=== PATIENT | male | born 1990 | race Caucasian/White ===

== ENCOUNTER 2019-01-10 12:42 | Emergency (ER) | payer MEDICAID ==
[~2019-01-10] VITALS: Ht 177.8 cm; Wt 81.8 kg
[2019-01-10 14:05] LABS: BASOPHILS % (AUTO) 1.5 % (0.0-2.0); EOSINOPHILS % (AUTO) 0.7 % (1.0-6.0); HEMATOCRIT 45.3 % (41-53); HEMOGLOBIN 15.2 g/dL (13.5-17.5); LYMPHOCYTES # (AUTO) 1.5 K/uL (1.0-4.8); LYMPHOCYTES % (AUTO) 26.8 % (22.0-44.0); MEAN CORPUSCULAR HEMOGLOBIN 30.9 pg (26.0-34.0); MEAN CORPUSCULAR HGB CONC 33.5 G/dL (31.0-37.0); MEAN CORPUSCULAR VOLUME 93 fL (80-100); MONOCYTES # (AUTO) 0.3 K/uL (0.1-1.0); MONOCYTES % (AUTO) 5.8 % (2.0-9.0); NEUTROPHILS # (AUTO) 3.7 K/uL (1.8-7.7); NEUTROPHILS % (AUTO) 65.2 % (40.0-70.0); PLATELET COUNT (AUTO) 300 K/uL (150-450); RED CELL DISTRIBUTION WIDTH 13.6 % (11.5-14.5)
[2019-01-10 14:16] LABS: ANION GAP 9 mmol/L (8-16); CALCIUM, TOTAL 9.2 mg/dL (8.8-10.5); CARBON DIOXIDE 29 mmol/L (22-29); CHLORIDE 107 mmol/L (98-107); CREATININE 0.89 mg/dL (0.60-1.30); GLOMERULAR FILTR. RATE CALC > 60 mL/min (>60); GLUCOSE,RANDOM 101 mg/dL (70-110); POTASSIUM 3.6 mmol/L (3.5-5.1); SODIUM SERUM 145 mmol/L (136-145); UREA NITROGEN, BLOOD 8 mg/dL (7-18)
[2019-01-10 14:22] LABS: ALANINE AMINOTRANSFERASE 39 U/L (12-78); ALKALINE PHOSPHATASE 79 U/L (46-116); ASPARTATE AMINOTRANSFERASE 23 U/L (15-37); BILIRUBIN,TOTAL 0.1 mg/dL (0.1-1.0); TOTAL PROTEIN, SERUM 7.3 g/dL (6.4-8.2)
[2019-01-10 20:13] VITALS: BP 213/74
== END 2019-01-10 19:45 | disposition home or self-care (01) ==
LOC: EMS 12:44
DX: F10.129 Alcohol abuse with intoxication, unspecified (principal); R41.82 Altered mental status, unspecified; M79.662 Pain in left lower leg; F31.9 Bipolar disorder, unspecified; F41.9 Anxiety disorder, unspecified; F20.9 Schizophrenia, unspecified; F17.210 Nicotine dependence, cigarettes, uncomplicated; F12.90 Cannabis use, unspecified, uncomplicated; Z79.899 Other long term (current) drug therapy; Z88.8 Allergy status to other drugs, medicaments and biological substances; Y90.8 Blood alcohol level of 240 mg/100 ml or more
CPT/HCPCS: 36415; 80053; 85025; 99283; G0480

== ENCOUNTER 2019-01-24 22:32 | Emergency (ER) | payer MEDICAID ==
[~2019-01-24] VITALS: Ht 172.7 cm; Wt 84.3 kg
[2019-01-24] MEDS ORDERED: BUSP15 PO (23:06)
[2019-01-24] MEDS ORDERED: GABA-533 PO (23:06)
[2019-01-24] MEDS ORDERED: OLAN20TA20 PO (23:06)
[2019-01-24] MEDS ORDERED: SERT100T12 PO (23:06)
[2019-01-24] MEDS ORDERED: TRAZ150 PO (23:06)
[2019-01-24] MEDS ORDERED: LORA-192 PO (23:06)
[2019-01-24 23:09] LABS: GLUCOSE,POINT OF CARE 106 MG/DL (70-110)
[2019-01-24] MEDS ORDERED: NALOXONE HCL 1 MG/ML 2 ML SYG IM ONE (23:15)
[2019-01-24 23:30] LABS: BASOPHILS % (AUTO) 0.9 % (0.0-2.0); EOSINOPHILS % (AUTO) 1.6 % (1.0-6.0); HEMATOCRIT 49.1 % (41-53); HEMOGLOBIN 16.7 g/dL (13.5-17.5); LYMPHOCYTES # (AUTO) 2.9 K/uL (1.0-4.8); LYMPHOCYTES % (AUTO) 23.3 % (22.0-44.0); MEAN CORPUSCULAR HEMOGLOBIN 30.4 pg (26.0-34.0); MEAN CORPUSCULAR VOLUME 90 fL (80-100); MONOCYTES # (AUTO) 1.5 K/uL (0.1-1.0); MONOCYTES % (AUTO) 11.5 % (2.0-9.0); NEUTROPHILS # (AUTO) 7.9 K/uL (1.8-7.7); NEUTROPHILS % (AUTO) 62.7 % (40.0-70.0); PLATELET COUNT (AUTO) 276 K/uL (150-450); RED BLOOD CELL COUNT(AUTO) 5.48 MIL/uL (4.50-5.90); RED CELL DISTRIBUTION WIDTH 13.8 % (11.5-14.5)
[2019-01-24 23:43] LABS: ANION GAP 14 mmol/L (8-16); CALCIUM, TOTAL 10.3 mg/dL (8.8-10.5); CARBON DIOXIDE 25 mmol/L (22-29); CHLORIDE 103 mmol/L (98-107); CREATININE 1.31 mg/dL (0.60-1.30); GLOMERULAR FILTR. RATE CALC > 60 mL/min (>60); GLUCOSE,RANDOM 113 mg/dL (70-110); POTASSIUM 3.5 mmol/L (3.5-5.1); SODIUM SERUM 142 mmol/L (136-145); UREA NITROGEN, BLOOD 22 mg/dL (7-18)
[2019-01-24 23:48] LABS: ALANINE AMINOTRANSFERASE 46 U/L (12-78); ALBUMIN 4.3 g/dL (3.4-5.0); ALKALINE PHOSPHATASE 92 U/L (46-116); ASPARTATE AMINOTRANSFERASE 43 U/L (15-37); BILIRUBIN,TOTAL 0.3 mg/dL (0.1-1.0); TOTAL PROTEIN, SERUM 8.3 g/dL (6.4-8.2)
[2019-01-24 23:51] LABS: SALICYLATE 3.7 mg/dL (2.8-20.0)
[2019-01-24 23:58] LABS: ACETAMINOPHEN < 2 mcg/mL (10-30)
[2019-01-25 03:43] LABS: AMPHET/METH SCREEN,URINE POSITIVE (NEGATIVE); BARBITURATE SCREEN, URINE NEGATIVE (NEGATIVE); BENZODIAZEPINES SCREEN,URINE NEGATIVE (NEGATIVE); CANNABINOID SCREEN,URINE NEGATIVE (NEGATIVE); COCAINE SCREEN,URINE NEGATIVE (NEGATIVE); METHADONE SCREEN, URINE NEGATIVE (NEGATIVE); OPIATE SCREEN,URINE NEGATIVE (NEGATIVE)
[2019-01-25 03:45] LABS: PHENCYCLIDINE SCREEN,URINE NEGATIVE (NEGATIVE)
[2019-01-25 03:50] VITALS: BP 104/59
== END 2019-01-25 05:23 | disposition home or self-care (01) ==
LOC: EMS 22:33
DX: F15.10 Other stimulant abuse, uncomplicated (principal); R41.82 Altered mental status, unspecified; F12.90 Cannabis use, unspecified, uncomplicated; F17.210 Nicotine dependence, cigarettes, uncomplicated; Z88.8 Allergy status to other drugs, medicaments and biological substances; Z79.899 Other long term (current) drug therapy
CPT/HCPCS: 36415; 70450; 80053; 80307; 82962; 85025; 93005; 96372; 99285; G0480 ×2; G0481; J2310; 82948

== ENCOUNTER 2019-08-17 20:25 | Emergency (ER) | payer MEDICAID ==
[~2019-08-17] VITALS: Ht 175.3 cm; Wt 95.5 kg
[~2019-08-17 20:25] MED LIST: BUSP15 PO; GABA-533 PO; LORA-192 PO; OLAN20TA20 PO; SERT100T12 PO; TRAZ150 PO
[2019-08-17 21:53] LABS: BASOPHILS % (AUTO) 1.2 % (0.0-2.0); EOSINOPHILS % (AUTO) 2.2 % (1.0-6.0); HEMATOCRIT 44.3 % (41-53); HEMOGLOBIN 15.1 g/dL (13.5-17.5); LYMPHOCYTES # (AUTO) 3.9 K/uL (1.0-4.8); LYMPHOCYTES % (AUTO) 34.3 % (22.0-44.0); MEAN CORPUSCULAR HEMOGLOBIN 29.7 pg (26.0-34.0); MEAN CORPUSCULAR HGB CONC 34.1 G/dL (31.0-37.0); MEAN CORPUSCULAR VOLUME 87 fL (80-100); MONOCYTES # (AUTO) 0.6 K/uL (0.1-1.0); MONOCYTES % (AUTO) 4.9 % (2.0-9.0); NEUTROPHILS # (AUTO) 6.6 K/uL (1.8-7.7); NEUTROPHILS % (AUTO) 57.4 % (40.0-70.0); RED CELL DISTRIBUTION WIDTH 14.1 % (11.5-14.5)
[2019-08-17 21:57] LABS: ANION GAP 12 mmol/L (8-16); CALCIUM, TOTAL 9.4 mg/dL (8.8-10.5); CARBON DIOXIDE 26 mmol/L (22-29); CHLORIDE 109 mmol/L (98-107); CREATININE 0.68 mg/dL (0.60-1.30); GLOMERULAR FILTR. RATE CALC > 60 mL/min (>60); GLUCOSE,RANDOM 104 mg/dL (70-110); POTASSIUM 3.9 mmol/L (3.5-5.1); SODIUM SERUM 147 mmol/L (136-145); UREA NITROGEN, BLOOD 5 mg/dL (7-18)
[2019-08-17 22:05] LABS: ALANINE AMINOTRANSFERASE 33 U/L (12-78); ALBUMIN 4.1 g/dL (3.4-5.0); ALKALINE PHOSPHATASE 124 U/L (46-116); ASPARTATE AMINOTRANSFERASE 18 U/L (15-37); BILIRUBIN,TOTAL 0.1 mg/dL (0.1-1.0); TOTAL PROTEIN, SERUM 7.5 g/dL (6.4-8.2)
[2019-08-17 22:16] LABS: PLATELET COUNT (AUTO) 318 K/uL (150-450)
[2019-08-18] MEDS ORDERED: CLOTRIMAZOLE 1%/BETAMETH DIP 0.05% 15 GM CREAM TP ONE (04:45)
[2019-08-18] MEDS ORDERED: ACETAMINOPHEN 325 MG TABLET PO ONE (05:15)
[2019-08-18 06:22] VITALS: BP 118/78
== END 2019-08-18 06:27 | disposition home or self-care (01) ==
LOC: EMS 20:26
DX: B35.4 Tinea corporis (principal); F10.129 Alcohol abuse with intoxication, unspecified; F17.210 Nicotine dependence, cigarettes, uncomplicated; F12.90 Cannabis use, unspecified, uncomplicated; Z98.890 Other specified postprocedural states; Z89.512 Acquired absence of left leg below knee; Z79.899 Other long term (current) drug therapy; Z88.8 Allergy status to other drugs, medicaments and biological substances; Y90.8 Blood alcohol level of 240 mg/100 ml or more
CPT/HCPCS: 36415; 80053; 82962; 85025; 99283; G0480

== ENCOUNTER 2019-10-13 21:02 | Inpatient (IN) | payer MEDICAID ==
[~2019-10-13] VITALS: Ht 177.8 cm; Wt 79.0 kg
[2019-10-13 22:01] LABS: BASOPHILS % (AUTO) 0.6 % (0.0-2.0); EOSINOPHILS % (AUTO) 0.6 % (1.0-6.0); HEMATOCRIT 43.2 % (41-53); HEMOGLOBIN 14.2 g/dL (13.5-17.5); LYMPHOCYTES # (AUTO) 1.4 K/uL (1.0-4.8); LYMPHOCYTES % (AUTO) 12.5 % (22.0-44.0); MEAN CORPUSCULAR HEMOGLOBIN 29.4 pg (26.0-34.0); MEAN CORPUSCULAR HGB CONC 32.9 G/dL (31.0-37.0); MEAN CORPUSCULAR VOLUME 90 fL (80-100); MONOCYTES # (AUTO) 0.6 K/uL (0.1-1.0); MONOCYTES % (AUTO) 5.5 % (2.0-9.0); NEUTROPHILS # (AUTO) 9.4 K/uL (1.8-7.7); NEUTROPHILS % (AUTO) 80.8 % (40.0-70.0); PLATELET COUNT (AUTO) 326 K/uL (150-450); RED BLOOD CELL COUNT(AUTO) 4.83 MIL/uL (4.50-5.90)
[2019-10-13 22:09] LABS: ANION GAP 8 mmol/L (8-16); CALCIUM, TOTAL 9.1 mg/dL (8.8-10.5); CARBON DIOXIDE 27 mmol/L (22-29); CHLORIDE 102 mmol/L (98-107); CREATININE 1.03 mg/dL (0.60-1.30); GLOMERULAR FILTR. RATE CALC > 60 mL/min (>60); GLUCOSE,RANDOM 157 mg/dL (70-110); POTASSIUM 3.6 mmol/L (3.5-5.1); SODIUM SERUM 137 mmol/L (136-145); UREA NITROGEN, BLOOD 9 mg/dL (7-18)
[2019-10-13 22:15] LABS: ALANINE AMINOTRANSFERASE 38 U/L (12-78); ALBUMIN 4.3 g/dL (3.4-5.0); ALKALINE PHOSPHATASE 101 U/L (46-116); ASPARTATE AMINOTRANSFERASE 22 U/L (15-37); BILIRUBIN,TOTAL 0.3 mg/dL (0.1-1.0); TOTAL PROTEIN, SERUM 7.9 g/dL (6.4-8.2)
[2019-10-13 22:25] LABS: B-TYPE NATRIURETIC PEPTIDE < 5 pg/mL (0-100)
[2019-10-13 22:36] LABS: ACETAMINOPHEN < 2 mcg/mL (10-30)
[2019-10-13 22:50] LABS: SALICYLATE 3.3 mg/dL (2.8-20.0)
[2019-10-13] MEDS ORDERED: NALOXONE HCL 1 MG/ML 2 ML SYG ONE (23:22)
[2019-10-14] MEDS ORDERED: NALOXONE HCL 1 MG/ML 2 ML SYG IM ONE
[2019-10-14] MEDS ORDERED: SODIUM CHLORIDE 0.9% 1,000 ML IV ONE
[2019-10-14] MEDS: OXYGEN THERAPY IH SCH ×3 (00:54→20:43)
[2019-10-14] MEDS ORDERED: PERMETHRIN 5% 60 GM CREAM TP ONE (01:15)
[2019-10-14] MEDS ORDERED: NALOXONE HCL 1 MG/ML 2 ML SYG IVP ONE (01:45)
[2019-10-14] MEDS: NALOXONE HCL 10 MG in DEXTROSE 5%-WATER 240 ML IV PRN ×3 (03:16→17:17)
[2019-10-14 03:46] LABS: AMPHET/METH SCREEN,URINE POSITIVE (NEGATIVE); BARBITURATE SCREEN, URINE NEGATIVE (NEGATIVE); BENZODIAZEPINES SCREEN,URINE POSITIVE (NEGATIVE); CANNABINOID SCREEN,URINE POSITIVE (NEGATIVE); COCAINE SCREEN,URINE NEGATIVE (NEGATIVE); METHADONE SCREEN, URINE NEGATIVE (NEGATIVE); OPIATE SCREEN,URINE NEGATIVE (NEGATIVE)
[2019-10-14 03:48] LABS: PHENCYCLIDINE SCREEN,URINE NEGATIVE (NEGATIVE)
[2019-10-14 06:06] LABS: ABG A-A DIFF O2 10.6 mmHg (10-20.0); ABG BASE EXCESS -1.8 mmol/L (-2.0-3.0); ABG HCO3 22.5 mmol/L (22.0-26.0); ABG METHEMOGLOBIN 0.2 % (0.0-1.5); ABG OXYGEN CONTENT 18.9 mL/dL (15.0-23.0); ABG OXYGEN SATURATION 95.7 % (95.0-98.0); ABG OXYHEMOGLOBIN 94.6 % (94.0-100.0); ABG PCO2 50 mmHg (35-45); ABG PH 7.305 (7.350-7.450); ABG TOTAL HEMOGLOBIN 14.2 G/dL (12.0-18.0); PO2, ARTERIAL BG 78.8 mmHg (80.0-100.0); SOURCE, BLOOD GAS ARTERIAL; TEMPERATURE, FAHRENHEIT, BG 98.6 FAHREN (96.0-98.6)
[2019-10-14 06:07] LABS: SITE, BLOOD GAS RT RADIAL
[2019-10-14] MEDS ORDERED: ACETAMINOPHEN 325 MG TABLET PO PRN (07:15)
[2019-10-14] MEDS ORDERED: ONDANSETRON HCL 4 MG/2 ML VIAL IVP PRN ×2 (07:15)
[2019-10-14] MEDS ORDERED: MAGNESIUM HYDROXIDE SUSPENSION 30 ML UDCUP PO PRN (07:15)
[2019-10-14] MEDS ORDERED: 0.9% SODIUM CHLORIDE 10 ML SYRINGE IVP PRN ×2 (07:15)
[2019-10-14] MEDS ORDERED: OxyCODONE HCL/ACETAMINOPHEN 5-325 MG TABLET PO PRN (07:15)
[2019-10-14] MEDS: SODIUM CHLORIDE 0.9% 1,000 ML IV SCH ×2 (07:42→17:17)
[2019-10-14 08:30] VITALS: BP 126/70
[2019-10-14] MEDS: DOCUSATE SODIUM 100 MG CAPSULE PO SCH ×2 (09:00→21:00)
[2019-10-14] MEDS: FAMOTIDINE 10 MG/ML 2 ML VIAL IVP SCH (09:57)
[2019-10-14] MEDS ORDERED: INFLUENZA VIRUS VACCINE QVS 2019-20 (3YR+)/PF 60 MCG/0.5 ML SYRINGE IM ONE (11:45)
[2019-10-14 12:00] VITALS: BP 144/67
[2019-10-14 12:22] VITALS: BP 112/83
[2019-10-14 12:52] VITALS: BP 118/53
[2019-10-14] MEDS: CALAMINE/ZINC OXIDE 177 ML LOTION TP SCH ×3 (13:10→21:00)
[2019-10-14 16:00] VITALS: BP 108/63
[2019-10-14 20:00] VITALS: BP 114/62
[2019-10-15] VITALS (7 sets, daily range): BP systolic 103–131; BP diastolic 37–81
[2019-10-15] MEDS: NALOXONE HCL 10 MG in DEXTROSE 5%-WATER 240 ML IV PRN (00:11)
[2019-10-15] MEDS: SODIUM CHLORIDE 0.9% 1,000 ML IV SCH ×3 (03:29→23:33)
[2019-10-15 05:05] LABS: BASOPHILS % (AUTO) 0.4 % (0.0-2.0); EOSINOPHILS % (AUTO) 1.4 % (1.0-6.0); HEMATOCRIT 40.3 % (41-53); HEMOGLOBIN 13.1 g/dL (13.5-17.5); LYMPHOCYTES # (AUTO) 1.5 K/uL (1.0-4.8); LYMPHOCYTES % (AUTO) 17.8 % (22.0-44.0); MEAN CORPUSCULAR HEMOGLOBIN 29.5 pg (26.0-34.0); MEAN CORPUSCULAR HGB CONC 32.6 G/dL (31.0-37.0); MEAN CORPUSCULAR VOLUME 91 fL (80-100); MONOCYTES # (AUTO) 0.6 K/uL (0.1-1.0); MONOCYTES % (AUTO) 7.6 % (2.0-9.0); NEUTROPHILS # (AUTO) 6.1 K/uL (1.8-7.7); NEUTROPHILS % (AUTO) 72.8 % (40.0-70.0); PLATELET COUNT (AUTO) 215 K/uL (150-450); RED BLOOD CELL COUNT(AUTO) 4.46 MIL/uL (4.50-5.90); RED CELL DISTRIBUTION WIDTH 14.8 % (11.5-14.5)
[2019-10-15 05:48] LABS: ANION GAP 3 mmol/L (8-16); CALCIUM, TOTAL 8.6 mg/dL (8.8-10.5); CARBON DIOXIDE 27 mmol/L (22-29); CHLORIDE 104 mmol/L (98-107); CREATININE 0.63 mg/dL (0.60-1.30); GLOMERULAR FILTR. RATE CALC > 60 mL/min (>60); GLUCOSE,RANDOM 96 mg/dL (70-110); POTASSIUM 3.9 mmol/L (3.5-5.1); SODIUM SERUM 134 mmol/L (136-145); UREA NITROGEN, BLOOD 5 mg/dL (7-18)
[2019-10-15] MEDS: FAMOTIDINE 10 MG/ML 2 ML VIAL IVP SCH (09:00)
[2019-10-15] MEDS: CALAMINE/ZINC OXIDE 177 ML LOTION TP SCH ×4 (09:37→23:33)
[2019-10-15] MEDS: DOCUSATE SODIUM 100 MG CAPSULE PO SCH ×2 (09:37→20:13)
[2019-10-15] MEDS: OXYGEN THERAPY IH SCH ×2 (09:50→20:00)
[2019-10-15 11:20] LABS: ABG A-A DIFF O2 16.4 mmHg (10-20.0); ABG CARBOXYHEMOGLOBIN 0.6 % (0.0-3.0); ABG HCO3 26.2 mmol/L (22.0-26.0); ABG METHEMOGLOBIN 0.1 % (0.0-1.5); ABG OXYGEN CONTENT 17.7 mL/dL (15.0-23.0); ABG OXYGEN SATURATION 94.7 % (95.0-98.0); ABG PCO2 53 mmHg (35-45); ABG PH 7.354 (7.350-7.450); ABG TOTAL HEMOGLOBIN 13.4 G/dL (12.0-18.0); PO2, ARTERIAL BG 70.7 mmHg (80.0-100.0); SOURCE, BLOOD GAS ARTERIAL; TEMPERATURE, FAHRENHEIT, BG 97.9 FAHREN (96.0-98.6)
[2019-10-15 11:22] LABS: SITE, BLOOD GAS RT RADIAL
[2019-10-15] MEDS: LORazepam 0.5 MG TABLET PO PRN ×2 (15:13→23:33)
[2019-10-15] MEDS: NICOTINE 21 MG/24 HOUR PATCH TD SCH (18:02)
[2019-10-15] MEDS ORDERED: LORA-999 PO (18:56)
[2019-10-15] MEDS: OxyCODONE HCL/ACETAMINOPHEN 5-325 MG TABLET PO PRN (20:10)
[2019-10-16] MEDS: OxyCODONE HCL/ACETAMINOPHEN 5-325 MG TABLET PO PRN ×3 (02:36→16:07)
[2019-10-16 05:15] VITALS: BP 135/71
[2019-10-16] MEDS: LORazepam 0.5 MG TABLET PO PRN ×2 (06:18→17:23)
[2019-10-16 07:53] VITALS: BP 140/84
[2019-10-16] MEDS: NICOTINE 21 MG/24 HOUR PATCH TD SCH (08:30)
[2019-10-16] MEDS: CALAMINE/ZINC OXIDE 177 ML LOTION TP SCH ×3 (08:30→21:00)
[2019-10-16] MEDS: DOCUSATE SODIUM 100 MG CAPSULE PO SCH ×2 (08:30→21:00)
[2019-10-16] MEDS: FAMOTIDINE 10 MG/ML 2 ML VIAL IVP SCH (08:30)
[2019-10-16] MEDS: OXYGEN THERAPY IH SCH ×2 (08:32→20:00)
[2019-10-16] MEDS: SODIUM CHLORIDE 0.9% 1,000 ML IV SCH ×2 (08:36→18:40)
[2019-10-16] MEDS: SERTRALINE HCL 100 MG TABLET PO SCH (12:11)
[2019-10-16 12:25] VITALS: BP 134/94
[2019-10-16 16:35] VITALS: BP 128/78
[2019-10-16] MEDS ORDERED: OLANZapine 10 MG TABLET PO SCH (21:00)
[2019-10-16 22:00] VITALS: BP 141/94
[2019-10-17] MEDS: LORazepam 0.5 MG TABLET PO PRN ×2 (00:30→07:48)
[2019-10-17 00:38] VITALS: BP 130/92
[2019-10-17] MEDS: OxyCODONE HCL/ACETAMINOPHEN 5-325 MG TABLET PO PRN (04:11)
[2019-10-17 04:30] VITALS: BP 139/74
[2019-10-17] MEDS: SODIUM CHLORIDE 0.9% 1,000 ML IV SCH (05:15)
[2019-10-17] MEDS: OXYGEN THERAPY IH SCH (07:15)
[2019-10-17] MEDS: FAMOTIDINE 10 MG/ML 2 ML VIAL IVP SCH (07:48)
[2019-10-17] MEDS: SERTRALINE HCL 100 MG TABLET PO SCH (07:48)
[2019-10-17] MEDS: DOCUSATE SODIUM 100 MG CAPSULE PO SCH (07:49)
[2019-10-17] MEDS: NICOTINE 21 MG/24 HOUR PATCH TD SCH (07:49)
[2019-10-17] MEDS: CALAMINE/ZINC OXIDE 177 ML LOTION TP SCH (07:49)
[2019-10-17] MEDS ORDERED: OLAN10TA3 PO (09:45)
[2019-10-17] MEDS ORDERED: [UNRECOGNIZED DRUG - CODE] TP (09:45)
== END 2019-10-17 10:20 | disposition home or self-care (01) | DRG 817 ==
LOC: EMS 21:04 → ICU 10-14 00:13 → ICUN 10-14 19:25 → 5S 10-15 14:25
PROVIDERS: ADMIT Internal Medicine; ATTEND Internal Medicine
DX: T40.4X2A Poisoning by other synthetic narcotics, intentional self-harm, initial encounter (principal); G93.40 Encephalopathy, unspecified; E87.2 Acidosis; R45.851 Suicidal ideations; F25.9 Schizoaffective disorder, unspecified; B86 Scabies; F19.10 Other psychoactive substance abuse, uncomplicated; F41.1 Generalized anxiety disorder; Z88.8 Allergy status to other drugs, medicaments and biological substances; Z89.512 Acquired absence of left leg below knee; F17.210 Nicotine dependence, cigarettes, uncomplicated; L30.9 Dermatitis, unspecified; F32.9 Major depressive disorder, single episode, unspecified; Y92.89 Other specified places as the place of occurrence of the external cause; Z59.0 Homelessness; Z28.21 Immunization not carried out because of patient refusal
CPT/HCPCS: 36600; 82805; 87081; 93005; 96372; 99291; G0378; G0480; G0481; J2310; J3490; J7030; J7060

== ENCOUNTER 2019-10-22 23:37 | Inpatient (IN) | payer MEDICAID ==
[~2019-10-22] VITALS: Ht 180.3 cm; Wt 80.3 kg
[~2019-10-22 23:37] MED LIST changes: -BUSP15 PO; -LORA-192 PO; +LORA-999 PO; +OLAN10TA3 PO; -TRAZ150 PO; +[UNRECOGNIZED DRUG - CODE] TP
[2019-10-23 02:08] LABS: BASOPHILS % (AUTO) 1.1 % (0.0-2.0); EOSINOPHILS % (AUTO) 2.7 % (1.0-6.0); HEMATOCRIT 42.7 % (41-53); HEMOGLOBIN 14.6 g/dL (13.5-17.5); LYMPHOCYTES # (AUTO) 2.8 K/uL (1.0-4.8); LYMPHOCYTES % (AUTO) 28.5 % (22.0-44.0); MEAN CORPUSCULAR HEMOGLOBIN 30.5 pg (26.0-34.0); MEAN CORPUSCULAR HGB CONC 34.1 G/dL (31.0-37.0); MEAN CORPUSCULAR VOLUME 89 fL (80-100); MONOCYTES # (AUTO) 0.8 K/uL (0.1-1.0); NEUTROPHILS # (AUTO) 5.8 K/uL (1.8-7.7); NEUTROPHILS % (AUTO) 59.7 % (40.0-70.0); PLATELET COUNT (AUTO) 286 K/uL (150-450); RED BLOOD CELL COUNT(AUTO) 4.78 MIL/uL (4.50-5.90)
[2019-10-23] MEDS ORDERED: OXYC-601 PO (02:09)
[2019-10-23] MEDS ORDERED: BUPR75 PO (02:09)
[2019-10-23] MEDS ORDERED: LORA-1000 PO (02:09)
[2019-10-23] MEDS ORDERED: FLUO-191 PO (02:09)
[2019-10-23 02:13] LABS: ANION GAP 10 mmol/L (8-16); CALCIUM, TOTAL 9.7 mg/dL (8.8-10.5); CARBON DIOXIDE 27 mmol/L (22-29); CHLORIDE 102 mmol/L (98-107); CREATININE 0.85 mg/dL (0.60-1.30); GLOMERULAR FILTR. RATE CALC > 60 mL/min (>60); GLUCOSE,RANDOM 100 mg/dL (70-110); POTASSIUM 3.9 mmol/L (3.5-5.1); SODIUM SERUM 139 mmol/L (136-145); UREA NITROGEN, BLOOD 13 mg/dL (7-18)
[2019-10-23] MEDS ORDERED: KETOROLAC TROMETHAMINE 30 MG/ML VIAL IM ONE (02:15)
[2019-10-23 02:18] LABS: ALANINE AMINOTRANSFERASE 34 U/L (12-78); ALKALINE PHOSPHATASE 86 U/L (46-116); ASPARTATE AMINOTRANSFERASE 14 U/L (15-37); BILIRUBIN,TOTAL 0.2 mg/dL (0.1-1.0); TOTAL PROTEIN, SERUM 7.5 g/dL (6.4-8.2)
[2019-10-23] MEDS ORDERED: LORazepam 2 MG TABLET PO ONE (02:30)
[2019-10-23] MEDS: LORazepam 2 MG TABLET PO PRN ×3 (04:57→15:07)
[2019-10-23 05:04] VITALS: BP 135/86
[2019-10-23] MEDS ORDERED: INFLUENZA VIRUS VACCINE QVS 2019-20 (3YR+)/PF 60 MCG/0.5 ML SYRINGE IM ONE (05:45)
[2019-10-23 09:42] VITALS: BP 146/81
[2019-10-23] MEDS: OLANZapine 5 MG TABLET PO SCH (10:05)
[2019-10-23] MEDS: FLUoxetine HCL 20 MG CAPSULE PO SCH (10:05)
[2019-10-23] MEDS: QUEtiapine FUMARATE 25 MG TABLET PO PRN ×2 (10:06→15:07)
[2019-10-23] MEDS: NICOTINE 21 MG/24 HOUR PATCH TD SCH (10:30)
[2019-10-23] MEDS: BuPROPion HCL 150 MG SR TABLET PO SCH (10:38)
[2019-10-23] MEDS ORDERED: PETROLATUM,WHITE 28 GM JELLY TP PRN (15:30)
[2019-10-23] MEDS ORDERED: NICOTINE 14 MG/24 HOUR PATCH TD PRN (15:30)
[2019-10-23] MEDS ORDERED: GuaiFENesin/D-METHORPHAN [SUGAR-FREE] 200-20MG/10 ML SYRUP UDCUP PO PRN (15:30)
[2019-10-23] MEDS ORDERED: CloNIDine HCL 0.1 MG TABLET PO PRN (15:30)
[2019-10-23] MEDS ORDERED: ACETAMINOPHEN 325 MG TABLET PO PRN (15:30)
[2019-10-23] MEDS ORDERED: ALBUTEROL SULFATE HFA 90 MCG/PUFF 8 GM INHALER IH PRN (15:30)
[2019-10-23] MEDS ORDERED: ONDANSETRON HCL 4 MG TABLET PO PRN (15:30)
[2019-10-23] MEDS ORDERED: LOPERAMIDE HCL 2 MG CAPSULE PO PRN (15:30)
[2019-10-23] MEDS ORDERED: DOCUSATE SODIUM 100 MG CAPSULE PO PRN (15:30)
[2019-10-23] MEDS ORDERED: MAGNESIUM HYDROXIDE SUSPENSION 30 ML UDCUP PO PRN (15:30)
[2019-10-23] MEDS ORDERED: BUPR150SR PO (15:38)
[2019-10-23] MEDS: OLANZapine 10 MG TABLET PO SCH (21:00)
[2019-10-24] MEDS: LORazepam 2 MG TABLET PO PRN ×4 (04:58→17:03)
[2019-10-24] MEDS: QUEtiapine FUMARATE 25 MG TABLET PO PRN ×2 (04:58→16:01)
[2019-10-24 08:30] VITALS: BP 109/56
[2019-10-24] MEDS: FLUoxetine HCL 20 MG CAPSULE PO SCH (08:40)
[2019-10-24] MEDS: OLANZapine 5 MG TABLET PO SCH (08:40)
[2019-10-24] MEDS: BuPROPion HCL 150 MG SR TABLET PO SCH (08:40)
[2019-10-24] MEDS: NICOTINE 21 MG/24 HOUR PATCH TD SCH (08:40)
[2019-10-24] MEDS: MUPIROCIN CALCIUM 2% 22 GM OINTMENT NASAL SCH (15:47)
[2019-10-24] MEDS: ZOLPIDEM TARTRATE 10 MG TABLET PO PRN (20:06)
[2019-10-24] MEDS: OLANZapine 10 MG TABLET PO SCH (20:07)
[2019-10-25] MEDS: QUEtiapine FUMARATE 25 MG TABLET PO PRN ×2 (02:06→11:50)
[2019-10-25] MEDS: LORazepam 2 MG TABLET PO PRN ×4 (05:32→19:00)
[2019-10-25] MEDS: MUPIROCIN CALCIUM 2% 22 GM OINTMENT NASAL SCH ×2 (08:09→16:22)
[2019-10-25] MEDS: OLANZapine 5 MG TABLET PO SCH (08:09)
[2019-10-25] MEDS: NICOTINE 21 MG/24 HOUR PATCH TD SCH (08:09)
[2019-10-25] MEDS: FLUoxetine HCL 20 MG CAPSULE PO SCH (08:09)
[2019-10-25] MEDS: BuPROPion HCL 150 MG SR TABLET PO SCH (08:09)
[2019-10-25 08:48] VITALS: BP 146/82
[2019-10-25 11:50] VITALS: BP 138/82
[2019-10-25] MEDS: TraMADol HCL 50 MG TABLET PO PRN ×2 (12:44→12:51)
[2019-10-25 19:36] VITALS: BP 114/86
[2019-10-25] MEDS: ZOLPIDEM TARTRATE 10 MG TABLET PO PRN (20:28)
[2019-10-25] MEDS: OLANZapine 10 MG TABLET PO SCH (20:38)
[2019-10-26 00:35] VITALS: BP 138/82
[2019-10-26] MEDS: TraMADol HCL 50 MG TABLET PO PRN ×2 (00:41→12:53)
[2019-10-26] MEDS: LORazepam 2 MG TABLET PO PRN ×3 (05:37→17:02)
[2019-10-26] MEDS: BuPROPion HCL 150 MG SR TABLET PO SCH (08:17)
[2019-10-26] MEDS: OLANZapine 5 MG TABLET PO SCH (08:17)
[2019-10-26] MEDS: FLUoxetine HCL 20 MG CAPSULE PO SCH (08:17)
[2019-10-26] MEDS: MUPIROCIN CALCIUM 2% 22 GM OINTMENT NASAL SCH ×2 (08:17→16:57)
[2019-10-26] MEDS: NICOTINE 21 MG/24 HOUR PATCH TD SCH (08:18)
[2019-10-26 09:04] VITALS: BP 120/70
[2019-10-26 12:49] VITALS: BP 123/75
[2019-10-26] MEDS: QUEtiapine FUMARATE 25 MG TABLET PO PRN (17:02)
[2019-10-26 17:11] VITALS: BP 118/58
[2019-10-26] MEDS: ZOLPIDEM TARTRATE 10 MG TABLET PO PRN (21:32)
[2019-10-26] MEDS: OLANZapine 10 MG TABLET PO SCH (21:32)
[2019-10-27] MEDS: LORazepam 2 MG TABLET PO PRN ×3 (05:32→16:38)
[2019-10-27] MEDS: TraMADol HCL 50 MG TABLET PO PRN ×2 (05:55→12:40)
[2019-10-27] MEDS: FLUoxetine HCL 20 MG CAPSULE PO SCH (07:57)
[2019-10-27] MEDS: OLANZapine 5 MG TABLET PO SCH (07:57)
[2019-10-27] MEDS: NICOTINE 21 MG/24 HOUR PATCH TD SCH (07:57)
[2019-10-27] MEDS: BuPROPion HCL 150 MG SR TABLET PO SCH (07:58)
[2019-10-27] MEDS: MUPIROCIN CALCIUM 2% 22 GM OINTMENT NASAL SCH ×2 (07:58→16:21)
[2019-10-27 08:49] VITALS: BP 117/51
[2019-10-27] MEDS: OLANZapine 10 MG TABLET PO SCH (20:09)
[2019-10-28] MEDS: ZOLPIDEM TARTRATE 10 MG TABLET PO PRN ×2 (02:55→20:01)
[2019-10-28 02:56] VITALS: BP 128/50
[2019-10-28] MEDS: LORazepam 2 MG TABLET PO PRN ×3 (06:54→18:05)
[2019-10-28 08:44] VITALS: BP 143/70
[2019-10-28] MEDS: BuPROPion HCL 150 MG SR TABLET PO SCH (08:47)
[2019-10-28] MEDS: FLUoxetine HCL 20 MG CAPSULE PO SCH (08:47)
[2019-10-28] MEDS: NICOTINE 21 MG/24 HOUR PATCH TD SCH (08:48)
[2019-10-28] MEDS: MUPIROCIN CALCIUM 2% 22 GM OINTMENT NASAL SCH ×2 (08:48→16:05)
[2019-10-28] MEDS: TraMADol HCL 50 MG TABLET PO PRN ×2 (08:48→16:04)
[2019-10-28] MEDS: OLANZapine 5 MG TABLET PO SCH (09:06)
[2019-10-28 16:00] VITALS: BP 124/80
[2019-10-28] MEDS: OLANZapine 10 MG TABLET PO SCH (20:01)
[2019-10-29] MEDS: LORazepam 2 MG TABLET PO PRN ×3 (02:59→16:25)
[2019-10-29 06:39] VITALS: BP 115/69
[2019-10-29] MEDS: TraMADol HCL 50 MG TABLET PO PRN ×2 (06:39→16:01)
[2019-10-29 07:39] VITALS: BP 113/71
[2019-10-29] MEDS: OLANZapine 5 MG TABLET PO SCH (08:14)
[2019-10-29] MEDS: FLUoxetine HCL 20 MG CAPSULE PO SCH (08:14)
[2019-10-29] MEDS: BuPROPion HCL 150 MG SR TABLET PO SCH (08:14)
[2019-10-29] MEDS: NICOTINE 21 MG/24 HOUR PATCH TD SCH (08:15)
[2019-10-29 09:19] VITALS: BP 113/71
[2019-10-29 16:01] VITALS: BP 120/70
[2019-10-29] MEDS: OLANZapine 10 MG TABLET PO SCH (20:11)
[2019-10-30 06:21] VITALS: BP 130/63
[2019-10-30] MEDS: LORazepam 2 MG TABLET PO PRN ×3 (06:21→17:46)
[2019-10-30 06:50] VITALS: BP 117/68
[2019-10-30] MEDS: TraMADol HCL 50 MG TABLET PO PRN ×2 (06:52→15:47)
[2019-10-30] MEDS: FLUoxetine HCL 20 MG CAPSULE PO SCH (08:12)
[2019-10-30] MEDS: OLANZapine 5 MG TABLET PO SCH (08:12)
[2019-10-30] MEDS: BuPROPion HCL 150 MG SR TABLET PO SCH (08:12)
[2019-10-30] MEDS: NICOTINE 21 MG/24 HOUR PATCH TD SCH (08:13)
[2019-10-30 15:47] VITALS: BP 108/68
[2019-10-30 16:00] VITALS: BP 108/68
[2019-10-30] MEDS: OLANZapine 10 MG TABLET PO SCH (20:43)
[2019-10-30] MEDS: ZOLPIDEM TARTRATE 10 MG TABLET PO PRN (23:52)
[2019-10-31 00:53] VITALS: BP 100/73
[2019-10-31] MEDS: LORazepam 2 MG TABLET PO PRN ×3 (04:30→16:51)
[2019-10-31] MEDS: TraMADol HCL 50 MG TABLET PO PRN (05:34)
[2019-10-31] MEDS: FLUoxetine HCL 20 MG CAPSULE PO SCH (08:19)
[2019-10-31] MEDS: NICOTINE 21 MG/24 HOUR PATCH TD SCH (08:19)
[2019-10-31] MEDS: OLANZapine 5 MG TABLET PO SCH (08:19)
[2019-10-31] MEDS: BuPROPion HCL 150 MG SR TABLET PO SCH (08:19)
[2019-10-31 09:18] VITALS: BP 105/67
[2019-10-31 18:01] VITALS: BP 116/72
[2019-10-31] MEDS: OLANZapine 10 MG TABLET PO SCH (20:53)
[2019-11-01 06:59] VITALS: BP 145/76
[2019-11-01] MEDS: LORazepam 2 MG TABLET PO PRN ×2 (07:00→12:31)
[2019-11-01 08:01] VITALS: BP 106/66
[2019-11-01] MEDS: FLUoxetine HCL 20 MG CAPSULE PO SCH (08:02)
[2019-11-01] MEDS: TraMADol HCL 50 MG TABLET PO PRN ×2 (08:02→14:16)
[2019-11-01] MEDS: OLANZapine 5 MG TABLET PO SCH (08:02)
[2019-11-01] MEDS: BuPROPion HCL 150 MG SR TABLET PO SCH (08:05)
[2019-11-01] MEDS: NICOTINE 21 MG/24 HOUR PATCH TD SCH (08:06)
[2019-11-01 09:05] VITALS: BP 106/66
[2019-11-01 14:16] VITALS: BP 110/77
[2019-11-01 17:14] VITALS: BP 110/63
[2019-11-01] MEDS: OLANZapine 10 MG TABLET PO SCH (20:18)
[2019-11-02] MEDS: LORazepam 2 MG TABLET PO PRN ×3 (05:32→15:53)
[2019-11-02 06:14] VITALS: BP 116/77
[2019-11-02] MEDS: TraMADol HCL 50 MG TABLET PO PRN (07:21)
[2019-11-02 08:21] VITALS: BP 143/93
[2019-11-02] MEDS: FLUoxetine HCL 20 MG CAPSULE PO SCH (08:24)
[2019-11-02] MEDS: BuPROPion HCL 150 MG SR TABLET PO SCH (08:25)
[2019-11-02] MEDS: NICOTINE 21 MG/24 HOUR PATCH TD SCH (08:25)
[2019-11-02] MEDS: OLANZapine 5 MG TABLET PO SCH (08:25)
[2019-11-02 16:29] VITALS: BP 115/70
[2019-11-02] MEDS: OLANZapine 10 MG TABLET PO SCH (21:18)
[2019-11-03 01:52] VITALS: BP 117/79
[2019-11-03] MEDS: ZOLPIDEM TARTRATE 10 MG TABLET PO PRN (01:52)
[2019-11-03] MEDS: LORazepam 2 MG TABLET PO PRN ×3 (05:46→16:25)
[2019-11-03] MEDS: NICOTINE 21 MG/24 HOUR PATCH TD SCH (08:13)
[2019-11-03] MEDS: FLUoxetine HCL 20 MG CAPSULE PO SCH (08:16)
[2019-11-03] MEDS: BuPROPion HCL 150 MG SR TABLET PO SCH (08:16)
[2019-11-03 08:17] VITALS: BP 119/70
[2019-11-03] MEDS: TraMADol HCL 50 MG TABLET PO PRN (08:17)
[2019-11-03] MEDS: OLANZapine 5 MG TABLET PO SCH (08:17)
[2019-11-03 16:47] VITALS: BP 108/67
[2019-11-03] MEDS: OLANZapine 10 MG TABLET PO SCH (20:18)
[2019-11-04 04:52] VITALS: BP 106/64
[2019-11-04] MEDS: LORazepam 2 MG TABLET PO PRN ×2 (05:02→10:46)
[2019-11-04] MEDS: TraMADol HCL 50 MG TABLET PO PRN (05:03)
[2019-11-04] MEDS: OLANZapine 5 MG TABLET PO SCH (08:10)
[2019-11-04] MEDS: BuPROPion HCL 150 MG SR TABLET PO SCH (08:10)
[2019-11-04] MEDS: FLUoxetine HCL 20 MG CAPSULE PO SCH (08:10)
[2019-11-04] MEDS: NICOTINE 21 MG/24 HOUR PATCH TD SCH (08:11)
[2019-11-04 10:28] VITALS: BP 116/71
[2019-11-04] MEDS: LORazepam 1 MG TABLET PO PRN (15:45)
[2019-11-04] MEDS: MAG HYDROX/AL HYDROX/SIMETH ES 30 ML SUSPENSION UDCUP PO PRN (16:45)
[2019-11-04 17:03] VITALS: BP 116/74
[2019-11-04] MEDS: OLANZapine 10 MG TABLET PO SCH (21:12)
[2019-11-04] MEDS: ZOLPIDEM TARTRATE 10 MG TABLET PO PRN (22:20)
[2019-11-05 04:59] VITALS: BP 112/66
[2019-11-05] MEDS: TraMADol HCL 50 MG TABLET PO PRN ×2 (04:59→16:26)
[2019-11-05] MEDS: LORazepam 1 MG TABLET PO PRN ×2 (04:59→13:39)
[2019-11-05] MEDS: OLANZapine 5 MG TABLET PO SCH (08:49)
[2019-11-05] MEDS: NICOTINE 21 MG/24 HOUR PATCH TD SCH (08:49)
[2019-11-05] MEDS: FLUoxetine HCL 20 MG CAPSULE PO SCH (08:49)
[2019-11-05] MEDS: BuPROPion HCL 150 MG SR TABLET PO SCH (08:50)
[2019-11-05 09:47] VITALS: BP 125/83
[2019-11-05 16:26] VITALS: BP 120/80
[2019-11-05 20:11] VITALS: BP 124/74
[2019-11-05] MEDS: OLANZapine 10 MG TABLET PO SCH (20:43)
[2019-11-06 04:25] VITALS: BP 137/71
[2019-11-06] MEDS: LORazepam 1 MG TABLET PO PRN ×2 (04:32→12:12)
[2019-11-06] MEDS: TraMADol HCL 50 MG TABLET PO PRN (04:32)
[2019-11-06 08:35] VITALS: BP 100/65
[2019-11-06] MEDS: FLUoxetine HCL 20 MG CAPSULE PO SCH (09:13)
[2019-11-06] MEDS: BuPROPion HCL 150 MG SR TABLET PO SCH (09:14)
[2019-11-06] MEDS: OLANZapine 5 MG TABLET PO SCH (09:14)
[2019-11-06] MEDS: NICOTINE 21 MG/24 HOUR PATCH TD SCH (09:14)
[2019-11-06 16:00] VITALS: BP 110/66
[2019-11-06] MEDS: MAG HYDROX/AL HYDROX/SIMETH ES 30 ML SUSPENSION UDCUP PO PRN (16:03)
[2019-11-06] MEDS: OLANZapine 10 MG TABLET PO SCH (20:28)
[2019-11-07 04:22] VITALS: BP 108/69
[2019-11-07] MEDS: TraMADol HCL 50 MG TABLET PO PRN (04:24)
[2019-11-07] MEDS: LORazepam 1 MG TABLET PO PRN ×3 (04:24→16:43)
[2019-11-07] MEDS: BuPROPion HCL 150 MG SR TABLET PO SCH (08:07)
[2019-11-07] MEDS: FLUoxetine HCL 20 MG CAPSULE PO SCH (08:07)
[2019-11-07] MEDS: OLANZapine 5 MG TABLET PO SCH (08:07)
[2019-11-07] MEDS: NICOTINE 21 MG/24 HOUR PATCH TD SCH (08:08)
[2019-11-07 08:42] VITALS: BP 118/80
[2019-11-07 19:16] VITALS: BP 114/68
[2019-11-07] MEDS: OLANZapine 10 MG TABLET PO SCH (19:58)
[2019-11-08] MEDS: ZOLPIDEM TARTRATE 10 MG TABLET PO PRN (01:10)
[2019-11-08 05:05] VITALS: BP 134/81
[2019-11-08] MEDS: LORazepam 1 MG TABLET PO PRN ×3 (05:07→16:42)
[2019-11-08] MEDS: TraMADol HCL 50 MG TABLET PO PRN (05:07)
[2019-11-08] MEDS: OLANZapine 5 MG TABLET PO SCH (08:04)
[2019-11-08] MEDS: FLUoxetine HCL 20 MG CAPSULE PO SCH (08:04)
[2019-11-08] MEDS: NICOTINE 21 MG/24 HOUR PATCH TD SCH (08:04)
[2019-11-08] MEDS: BuPROPion HCL 150 MG SR TABLET PO SCH (08:04)
[2019-11-08 08:41] VITALS: BP 120/68
[2019-11-08] MEDS ORDERED: OLAN10TA3 PO ×2 (16:12→16:13)
[2019-11-08] MEDS ORDERED: FLUO-191 PO (16:15)
[2019-11-08] MEDS ORDERED: BUPR150SR PO (16:16)
[2019-11-08] MEDS ORDERED: OLAN5TAB2 PO (16:19)
== END 2019-11-08 17:30 | disposition home or self-care (01) | DRG 885 ==
LOC: EMS 23:37 → 3EC 10-23 04:00 → 3EI 10-25 14:50
PROVIDERS: ADMIT Psychiatry & Neurology Child & Adolescent Psychiatry; ATTEND Psychiatry & Neurology Child & Adolescent Psychiatry
DX: F20.0 Paranoid schizophrenia (principal); F10.10 Alcohol abuse, uncomplicated; F19.10 Other psychoactive substance abuse, uncomplicated; R45.850 Homicidal ideations; Z59.0 Homelessness; Z89.512 Acquired absence of left leg below knee; Z28.82 Immunization not carried out because of caregiver refusal; Z71.6 Tobacco abuse counseling
CPT/HCPCS: 87081; G0480; J1885

== ENCOUNTER 2019-12-27 05:52 | Emergency (ER) | payer MEDICAID ==
[~2019-12-27] VITALS: Ht 180.3 cm; Wt 81.8 kg
[~2019-12-27 05:52] MED LIST changes: +BUPR150SR PO; +FLUO-191 PO; -GABA-533 PO; -LORA-999 PO; -OLAN20TA20 PO; +OLAN5TAB2 PO; -SERT100T12 PO; -[UNRECOGNIZED DRUG - CODE] TP
[2019-12-27] MEDS ORDERED: SODIUM CHLORIDE 0.9% 1,000 ML IV ONE (07:30)
[2019-12-27] MEDS ORDERED: LORazepam 2 MG/ML VIAL IVP ONE (07:30)
[2019-12-27 08:13] LABS: BASOPHILS % (AUTO) 0.7 % (0.0-2.0); EOSINOPHILS % (AUTO) 1.8 % (1.0-6.0); HEMATOCRIT 38.9 % (41-53); HEMOGLOBIN 13.4 g/dL (13.5-17.5); LYMPHOCYTES # (AUTO) 1.3 K/uL (1.0-4.8); MEAN CORPUSCULAR HGB CONC 34.5 G/dL (31.0-37.0); MEAN CORPUSCULAR VOLUME 90 fL (80-100); MONOCYTES # (AUTO) 0.7 K/uL (0.1-1.0); MONOCYTES % (AUTO) 7.2 % (2.0-9.0); NEUTROPHILS # (AUTO) 7.4 K/uL (1.8-7.7); NEUTROPHILS % (AUTO) 77.3 % (40.0-70.0); PLATELET COUNT (AUTO) 291 K/uL (150-450); RED BLOOD CELL COUNT(AUTO) 4.31 MIL/uL (4.50-5.90); RED CELL DISTRIBUTION WIDTH 13.6 % (11.5-14.5)
[2019-12-27 08:24] LABS: ANION GAP 7 mmol/L (8-16); CALCIUM, TOTAL 8.8 mg/dL (8.8-10.5); CARBON DIOXIDE 29 mmol/L (22-29); CHLORIDE 108 mmol/L (98-107); CREATININE 0.67 mg/dL (0.60-1.30); GLOMERULAR FILTR. RATE CALC > 60 mL/min (>60); GLUCOSE,RANDOM 98 mg/dL (70-110); POTASSIUM 3.9 mmol/L (3.5-5.1); SODIUM SERUM 144 mmol/L (136-145); UREA NITROGEN, BLOOD 8 mg/dL (7-18)
[2019-12-27 08:49] LABS: ALANINE AMINOTRANSFERASE 26 U/L (12-78); ALBUMIN 3.4 g/dL (3.4-5.0); ALKALINE PHOSPHATASE 81 U/L (46-116); ASPARTATE AMINOTRANSFERASE 20 U/L (15-37); BILIRUBIN,TOTAL 0.2 mg/dL (0.1-1.0); CREATINE KINASE, TOTAL ONLY 363 U/L (39-308); TOTAL PROTEIN, SERUM 6.7 g/dL (6.4-8.2)
[2019-12-27 08:53] LABS: AMPHET/METH SCREEN,URINE NEGATIVE (NEGATIVE); BARBITURATE SCREEN, URINE NEGATIVE (NEGATIVE); BENZODIAZEPINES SCREEN,URINE NEGATIVE (NEGATIVE); CANNABINOID SCREEN,URINE NEGATIVE (NEGATIVE); COCAINE SCREEN,URINE NEGATIVE (NEGATIVE); METHADONE SCREEN, URINE NEGATIVE (NEGATIVE); OPIATE SCREEN,URINE NEGATIVE (NEGATIVE)
[2019-12-27 08:58] LABS: APPEARANCE,URINE CLEAR (CLEAR); BILIRUBIN,URINE NEGATIVE (NEGATIVE); GLUCOSE, URINE (UA) NEGATIVE (NEGATIVE); KETONES,URINE NEGATIVE (NEGATIVE); LEUKOCYTE ESTERASE ,URINE NEGATIVE (NEGATIVE); NITRATE,URINE NEGATIVE (NEGATIVE); OCCULT BLOOD,URINE NEGATIVE (NEGATIVE); PH,URINE 5.5 (5.0-8.0); PROTEIN,URINE NEGATIVE (NEGATIVE); UROBILINOGEN,URINE 0.2 mg/dL (<=1.0)
[2019-12-27 09:01] LABS: BACTERIA,URINE None Seen /HPF (None Seen); RBC,URINE None Seen /HPF (0-2); WBC,URINE None Seen /HPF (0-5)
[2019-12-27 09:04] LABS: PHENCYCLIDINE SCREEN,URINE NEGATIVE (NEGATIVE)
[2019-12-27 09:32] VITALS: BP 144/83
== END 2019-12-27 09:40 | disposition home or self-care (01) ==
LOC: EMS 05:52
DX: R41.0 Disorientation, unspecified (principal); F41.9 Anxiety disorder, unspecified; F20.9 Schizophrenia, unspecified; F17.210 Nicotine dependence, cigarettes, uncomplicated; F12.90 Cannabis use, unspecified, uncomplicated; F11.90 Opioid use, unspecified, uncomplicated; Z88.8 Allergy status to other drugs, medicaments and biological substances
CPT/HCPCS: 36415; 71045; 80053; 80307; 81001; 82550; 85025; 93005; 96361; 96374; 99285; G0480; J2060; J7030

== ENCOUNTER 2021-06-08 06:59 | Emergency (ER) | payer MEDICAID ==
[~2021-06-08] VITALS: Ht 177.8 cm; Wt 77.3 kg
[~2021-06-08 06:59] MED LIST changes: -OLAN10TA3 PO; +OLAN10TA74 PO; -OLAN5TAB2 PO; +OLAN5TAB52 PO
[2021-06-08] MEDS ORDERED: BUPR1FIL3 SL (07:13)
[2021-06-08] MEDS ORDERED: BUPRENORPHINE HCL/NALOXONE HCL 8-2 MG SUBLINGUAL TABLET SL ONE (07:45)
[2021-06-08] MEDS ORDERED: OLANZapine 5 MG TABLET PO ONE (07:45)
[2021-06-08 08:01] LABS: BASOPHILS % (AUTO) 0.8 % (0.0-2.0); EOSINOPHILS % (AUTO) 5.1 % (1.0-6.0); HEMATOCRIT 41.7 % (41-53); HEMOGLOBIN 14.2 g/dL (13.5-17.5); LYMPHOCYTES # (AUTO) 1.8 K/uL (1.0-4.8); LYMPHOCYTES % (AUTO) 18.3 % (22.0-44.0); MEAN CORPUSCULAR HEMOGLOBIN 31.4 pg (26.0-34.0); MEAN CORPUSCULAR VOLUME 92 fL (80-100); MONOCYTES # (AUTO) 0.9 K/uL (0.1-1.0); MONOCYTES % (AUTO) 9.4 % (2.0-9.0); NEUTROPHILS # (AUTO) 6.6 K/uL (1.8-7.7); NEUTROPHILS % (AUTO) 66.4 % (40.0-70.0); PLATELET COUNT (AUTO) 330 K/uL (150-450); RED BLOOD CELL COUNT(AUTO) 4.53 MIL/uL (4.50-5.90); RED CELL DISTRIBUTION WIDTH 14.1 % (11.5-14.5)
[2021-06-08 08:09] LABS: ANION GAP 8 mmol/L (8-16); CARBON DIOXIDE 31 mmol/L (22-29); CHLORIDE 104 mmol/L (98-107); CREATININE 0.86 mg/dL (0.60-1.30); GLOMERULAR FILTR. RATE CALC > 60 mL/min (>60); GLUCOSE,RANDOM 82 mg/dL (70-110); POTASSIUM 3.7 mmol/L (3.5-5.1); SODIUM SERUM 143 mmol/L (136-145); UREA NITROGEN, BLOOD 20 mg/dL (7-18)
[2021-06-08 08:15] LABS: ALANINE AMINOTRANSFERASE 53 U/L (12-78); ALBUMIN 4.6 g/dL (3.4-5.0); ALKALINE PHOSPHATASE 108 U/L (46-116); ASPARTATE AMINOTRANSFERASE 32 U/L (15-37); BILIRUBIN,TOTAL 0.3 mg/dL (0.1-1.0); TOTAL PROTEIN, SERUM 8.6 g/dL (6.4-8.2)
[2021-06-08 08:15] LABS: AMPHET/METH SCREEN,URINE POSITIVE (NEGATIVE); BARBITURATE SCREEN, URINE NEGATIVE (NEGATIVE); BENZODIAZEPINES SCREEN,URINE NEGATIVE (NEGATIVE); CANNABINOID SCREEN,URINE NEGATIVE (NEGATIVE); COCAINE SCREEN,URINE NEGATIVE (NEGATIVE); METHADONE SCREEN, URINE NEGATIVE (NEGATIVE); OPIATE SCREEN,URINE NEGATIVE (NEGATIVE)
[2021-06-08 08:16] LABS: PHENCYCLIDINE SCREEN,URINE NEGATIVE (NEGATIVE)
[2021-06-08 11:29] LABS: COVID AG,FIA SOURCE NASAL SWAB
[2021-06-08 13:05] VITALS: BP 124/82
== END 2021-06-08 13:28 | disposition home or self-care (01) ==
LOC: EMS 07:00
DX: F25.9 Schizoaffective disorder, unspecified (principal); F11.90 Opioid use, unspecified, uncomplicated; Z20.822 Contact with and (suspected) exposure to COVID-19
CPT/HCPCS: 36415; 80053; 80307; 85025; 87426; 99283; G0480; 99284

== ENCOUNTER 2021-07-07 00:40 | Inpatient (IN) | payer MEDICAID ==
[~2021-07-07] VITALS: Ht 177.8 cm; Wt 66.7 kg
[~2021-07-07 00:40] MED LIST changes: +BUPR1FIL3 SL
[2021-07-07] MEDS ORDERED: IBUPROFEN 800 MG TABLET PO ONE (03:30)
[2021-07-07 03:51] LABS: COVID AG,FIA SOURCE NASOPHARYNGEAL
[2021-07-07 04:02] LABS: ANION GAP 5 mmol/L (8-16); CALCIUM, TOTAL 9.2 mg/dL (8.8-10.5); CARBON DIOXIDE 30 mmol/L (22-29); CHLORIDE 104 mmol/L (98-107); CREATININE 0.83 mg/dL (0.60-1.30); GLOMERULAR FILTR. RATE CALC > 60 mL/min (>60); GLUCOSE,RANDOM 109 mg/dL (70-110); POTASSIUM 3.5 mmol/L (3.5-5.1); SODIUM SERUM 139 mmol/L (136-145); UREA NITROGEN, BLOOD 13 mg/dL (7-18)
[2021-07-07 04:03] LABS: BASOPHILS % (AUTO) 1.4 % (0.0-2.0); EOSINOPHILS % (AUTO) 8.1 % (1.0-6.0); HEMATOCRIT 38.8 % (41-53); HEMOGLOBIN 13.2 g/dL (13.5-17.5); LYMPHOCYTES # (AUTO) 2.9 K/uL (1.0-4.8); LYMPHOCYTES % (AUTO) 27.4 % (22.0-44.0); MEAN CORPUSCULAR HEMOGLOBIN 30.7 pg (26.0-34.0); MEAN CORPUSCULAR HGB CONC 33.9 G/dL (31.0-37.0); MEAN CORPUSCULAR VOLUME 91 fL (80-100); MONOCYTES # (AUTO) 0.9 K/uL (0.1-1.0); MONOCYTES % (AUTO) 8.7 % (2.0-9.0); NEUTROPHILS # (AUTO) 5.8 K/uL (1.8-7.7); NEUTROPHILS % (AUTO) 54.4 % (40.0-70.0); PLATELET COUNT (AUTO) 299 K/uL (150-450); RED BLOOD CELL COUNT(AUTO) 4.28 MIL/uL (4.50-5.90); RED CELL DISTRIBUTION WIDTH 14.5 % (11.5-14.5)
[2021-07-07 04:08] LABS: ALANINE AMINOTRANSFERASE 54 U/L (12-78); ALBUMIN 3.8 g/dL (3.4-5.0); ALKALINE PHOSPHATASE 87 U/L (46-116); ASPARTATE AMINOTRANSFERASE 38 U/L (15-37); BILIRUBIN,TOTAL 0.5 mg/dL (0.1-1.0); TOTAL PROTEIN, SERUM 7.4 g/dL (6.4-8.2)
[2021-07-07] MEDS: LORazepam 2 MG TABLET PO PRN ×2 (04:13→14:25)
[2021-07-07] MEDS: ZOLPIDEM TARTRATE 10 MG TABLET PO PRN ×2 (04:44→20:31)
[2021-07-07 11:42] LABS: APPEARANCE,URINE CLEAR (CLEAR); BILIRUBIN,URINE NEGATIVE (NEGATIVE); GLUCOSE, URINE (UA) NEGATIVE (NEGATIVE); KETONES,URINE NEGATIVE (NEGATIVE); LEUKOCYTE ESTERASE ,URINE NEGATIVE (NEGATIVE); NITRATE,URINE NEGATIVE (NEGATIVE); OCCULT BLOOD,URINE NEGATIVE (NEGATIVE); PH,URINE 5.5 (5.0-8.0); PROTEIN,URINE NEGATIVE (NEGATIVE); UROBILINOGEN,URINE 0.2 mg/dL (<=1.0)
[2021-07-07 11:47] LABS: AMPHET/METH SCREEN,URINE POSITIVE (NEGATIVE); BARBITURATE SCREEN, URINE NEGATIVE (NEGATIVE); BENZODIAZEPINES SCREEN,URINE NEGATIVE (NEGATIVE); CANNABINOID SCREEN,URINE NEGATIVE (NEGATIVE); COCAINE SCREEN,URINE NEGATIVE (NEGATIVE); METHADONE SCREEN, URINE NEGATIVE (NEGATIVE); OPIATE SCREEN,URINE NEGATIVE (NEGATIVE); PHENCYCLIDINE SCREEN,URINE NEGATIVE (NEGATIVE)
[2021-07-07] MEDS ORDERED: OLANZapine 5 MG TABLET PO ONE (14:45)
[2021-07-07] MEDS ORDERED: GABAPENTIN 400 MG CAPSULE PO ONE (14:45)
[2021-07-07] MEDS ORDERED: BUPRENORPHINE HCL/NALOXONE HCL 8-2 MG SUBLINGUAL TABLET SL ONE (14:45)
[2021-07-07 17:40] VITALS: BP 137/80
[2021-07-07] MEDS ORDERED: ACETAMINOPHEN 325 MG TABLET PO PRN (22:15)
[2021-07-08] MEDS: LORazepam 2 MG TABLET PO PRN ×2 (08:44→17:20)
[2021-07-08 11:23] VITALS: BP 94/52
[2021-07-08] MEDS ORDERED: BUPRENORPHINE HCL/NALOXONE HCL 8-2 MG SUBLINGUAL TABLET SL ONE (11:45)
[2021-07-08] MEDS: BuPROPion HCL XL 150 MG ER TABLET PO SCH (12:37)
[2021-07-08 16:00] VITALS: BP 112/77
[2021-07-08] MEDS ORDERED: ALBUTEROL SULFATE HFA 90 MCG/PUFF 8 GM INHALER IH PRN (16:00)
[2021-07-08] MEDS ORDERED: CloNIDine HCL 0.1 MG TABLET PO PRN (16:00)
[2021-07-08] MEDS ORDERED: GuaiFENesin/D-METHORPHAN [SUGAR-FREE] 200-20MG/10 ML SYRUP UDCUP PO PRN (16:00)
[2021-07-08] MEDS ORDERED: IBUPROFEN 400 MG TABLET PO PRN (16:00)
[2021-07-08] MEDS ORDERED: ONDANSETRON HCL 4 MG TABLET PO PRN (16:00)
[2021-07-08] MEDS ORDERED: MAGNESIUM HYDROXIDE SUSPENSION 30 ML UDCUP PO PRN (16:00)
[2021-07-08] MEDS ORDERED: PETROLATUM,WHITE 28 GM JELLY TP PRN (16:00)
[2021-07-08] MEDS ORDERED: DOCUSATE SODIUM 100 MG CAPSULE PO PRN (16:00)
[2021-07-08] MEDS: NICOTINE POLACRILEX 2 MG LOZENGE PO PRN (17:21)
[2021-07-08] MEDS: OLANZapine 10 MG TABLET PO SCH (20:09)
[2021-07-09] MEDS: NICOTINE POLACRILEX 2 MG LOZENGE PO PRN ×2 (09:08→16:55)
[2021-07-09] MEDS: LORazepam 2 MG TABLET PO PRN (09:08)
[2021-07-09] MEDS: BuPROPion HCL XL 150 MG ER TABLET PO SCH (09:08)
[2021-07-09 09:23] VITALS: BP 100/57
[2021-07-09 16:48] VITALS: BP 128/68
[2021-07-09] MEDS: OLANZapine 10 MG TABLET PO SCH (20:12)
[2021-07-10] MEDS: NICOTINE POLACRILEX 2 MG LOZENGE PO PRN (08:27)
[2021-07-10] MEDS: BuPROPion HCL XL 150 MG ER TABLET PO SCH (08:27)
[2021-07-10] MEDS: LORazepam 2 MG TABLET PO PRN ×2 (08:27→16:29)
[2021-07-10 09:20] VITALS: BP 117/72
[2021-07-10] MEDS: LOPERAMIDE HCL 2 MG CAPSULE PO PRN (12:33)
[2021-07-10 17:28] VITALS: BP 112/69
[2021-07-10] MEDS: OLANZapine 10 MG TABLET PO SCH (20:17)
[2021-07-11] MEDS: BuPROPion HCL XL 150 MG ER TABLET PO SCH (08:49)
[2021-07-11] MEDS: LORazepam 2 MG TABLET PO PRN ×2 (09:20→17:34)
[2021-07-11] MEDS: NICOTINE POLACRILEX 2 MG LOZENGE PO PRN (09:48)
[2021-07-11 16:34] VITALS: BP 109/89
[2021-07-11] MEDS: OLANZapine 10 MG TABLET PO SCH (20:24)
[2021-07-12 05:26] VITALS: BP 105/75
[2021-07-12] MEDS: LORazepam 2 MG TABLET PO PRN ×2 (05:26→14:15)
[2021-07-12] MEDS: BuPROPion HCL XL 150 MG ER TABLET PO SCH (08:05)
[2021-07-12] MEDS: NICOTINE POLACRILEX 2 MG LOZENGE PO PRN ×2 (08:19→14:26)
[2021-07-12 09:04] VITALS: BP 130/71
[2021-07-12] MEDS: OLANZapine 10 MG TABLET PO SCH (20:25)
[2021-07-13] MEDS: LORazepam 2 MG TABLET PO PRN ×2 (06:24→14:09)
[2021-07-13] MEDS: BuPROPion HCL XL 150 MG ER TABLET PO SCH (08:16)
[2021-07-13] MEDS: NICOTINE POLACRILEX 2 MG LOZENGE PO PRN (08:48)
[2021-07-13 09:55] VITALS: BP 140/78
[2021-07-13] MEDS ORDERED: NICO-703 TD (11:37)
[2021-07-13] MEDS ORDERED: BUPR-93 PO (11:37)
[2021-07-13] MEDS ORDERED: BuPROPion HCL XL 150 MG ER TABLET PO ONE (11:45)
[2021-07-13] MEDS: NICOTINE 14 MG/24 HOUR PATCH TD PRN (12:20)
[2021-07-13] MEDS: QUEtiapine FUMARATE 100 MG TABLET PO PRN (16:47)
[2021-07-13 17:00] VITALS: BP 117/71
[2021-07-13] MEDS: OLANZapine 10 MG TABLET PO SCH (20:17)
[2021-07-14 03:00] VITALS: BP 121/82
[2021-07-14] MEDS: LORazepam 2 MG TABLET PO PRN ×3 (06:15→16:57)
[2021-07-14] MEDS: BuPROPion HCL XL 150 MG ER TABLET PO SCH (08:02)
[2021-07-14] MEDS: QUEtiapine FUMARATE 100 MG TABLET PO PRN ×2 (08:03→14:59)
[2021-07-14] MEDS: NICOTINE 14 MG/24 HOUR PATCH TD PRN (08:06)
[2021-07-14 09:43] LABS: COVID AG,FIA SOURCE NASAL SWAB
[2021-07-14 09:51] VITALS: BP 122/81
[2021-07-14] MEDS: NICOTINE POLACRILEX 2 MG LOZENGE PO PRN (15:01)
[2021-07-14 16:27] VITALS: BP 141/73
[2021-07-14] MEDS: OLANZapine 10 MG TABLET PO SCH (20:14)
[2021-07-14] MEDS: ZOLPIDEM TARTRATE 10 MG TABLET PO PRN (22:42)
[2021-07-15] MEDS: LORazepam 2 MG TABLET PO PRN ×4 (03:21→19:16)
[2021-07-15] MEDS: NICOTINE 14 MG/24 HOUR PATCH TD PRN (08:25)
[2021-07-15] MEDS: QUEtiapine FUMARATE 100 MG TABLET PO PRN (08:26)
[2021-07-15] MEDS: BuPROPion HCL XL 150 MG ER TABLET PO SCH (08:26)
[2021-07-15 10:30] VITALS: BP 131/74
[2021-07-15] MEDS: LOPERAMIDE HCL 2 MG CAPSULE PO PRN (12:58)
[2021-07-15 16:20] VITALS: BP 126/81
[2021-07-15] MEDS: ACETAMINOPHEN 325 MG TABLET PO PRN (19:16)
[2021-07-15] MEDS: OLANZapine 10 MG TABLET PO SCH (21:20)
[2021-07-15] MEDS: ZOLPIDEM TARTRATE 10 MG TABLET PO PRN (21:20)
[2021-07-16 05:30] VITALS: BP 138/93
[2021-07-16] MEDS: LORazepam 2 MG TABLET PO PRN ×4 (05:31→18:34)
[2021-07-16] MEDS: NICOTINE 14 MG/24 HOUR PATCH TD PRN (07:40)
[2021-07-16] MEDS: MAG HYDROX/AL HYDROX/SIMETH ES 30 ML SUSPENSION UDCUP PO PRN (07:40)
[2021-07-16] MEDS: QUEtiapine FUMARATE 100 MG TABLET PO PRN ×2 (07:41→22:26)
[2021-07-16] MEDS: BuPROPion HCL XL 150 MG ER TABLET PO SCH (08:51)
[2021-07-16] MEDS: NICOTINE 14 MG/24 HOUR PATCH TD SCH (09:32)
[2021-07-16 16:20] VITALS: BP 132/84
[2021-07-16] MEDS: ZOLPIDEM TARTRATE 10 MG TABLET PO PRN (20:14)
[2021-07-16] MEDS: OLANZapine 10 MG TABLET PO SCH (20:14)
[2021-07-17 01:20] VITALS: BP 138/98
[2021-07-17] MEDS: LORazepam 2 MG TABLET PO PRN ×3 (06:05→16:08)
[2021-07-17] MEDS: QUEtiapine FUMARATE 100 MG TABLET PO PRN (07:50)
[2021-07-17] MEDS: NICOTINE POLACRILEX 2 MG LOZENGE PO PRN ×2 (07:50→16:08)
[2021-07-17] MEDS: BuPROPion HCL XL 150 MG ER TABLET PO SCH (07:54)
[2021-07-17] MEDS: NICOTINE 14 MG/24 HOUR PATCH TD SCH (07:54)
[2021-07-17 09:50] VITALS: BP 134/88
[2021-07-17] MEDS ORDERED: BuPROPion HCL XL 150 MG ER TABLET PO ONE (11:15)
[2021-07-17] MEDS: MULTIVITAMINS WITH MINERALS, THERAPEUTIC TABLET PO SCH (11:21)
[2021-07-17 16:21] VITALS: BP 121/77
[2021-07-17] MEDS: MAG HYDROX/AL HYDROX/SIMETH ES 30 ML SUSPENSION UDCUP PO PRN (19:14)
[2021-07-17] MEDS: ACETAMINOPHEN 325 MG TABLET PO PRN (19:52)
[2021-07-17] MEDS: OLANZapine 10 MG TABLET PO SCH (20:15)
[2021-07-17] MEDS: ZOLPIDEM TARTRATE 10 MG TABLET PO PRN (22:07)
[2021-07-18] MEDS: LORazepam 2 MG TABLET PO PRN ×2 (03:54→11:33)
[2021-07-18] MEDS: QUEtiapine FUMARATE 100 MG TABLET PO PRN (04:13)
[2021-07-18 04:15] VITALS: BP 150/94
[2021-07-18] MEDS: NICOTINE POLACRILEX 2 MG LOZENGE PO PRN (04:37)
[2021-07-18 05:00] VITALS: BP 110/58
[2021-07-18] MEDS: MULTIVITAMINS WITH MINERALS, THERAPEUTIC TABLET PO SCH (08:02)
[2021-07-18] MEDS: NICOTINE 14 MG/24 HOUR PATCH TD SCH (08:02)
[2021-07-18] MEDS ORDERED: BuPROPion HCL XL 150 MG ER TABLET PO SCH (09:00)
[2021-07-18] MEDS: MAG HYDROX/AL HYDROX/SIMETH ES 30 ML SUSPENSION UDCUP PO PRN (09:27)
[2021-07-18 09:56] VITALS: BP 117/75
[2021-07-18] MEDS ORDERED: BUPR-93 PO (10:57)
[2021-07-18 11:30] VITALS: BP 126/78
== END 2021-07-18 13:20 | disposition home or self-care (01) | DRG 750 ==
LOC: EMS 00:41 → 3EX 17:09 → 3EI 17:47
PROVIDERS: ADMIT Psychiatry & Neurology Psychiatry; ATTEND Psychiatry & Neurology Psychiatry
DX: F25.1 Schizoaffective disorder, depressive type (principal); R45.851 Suicidal ideations; Z59.00 Homelessness unspecified; D64.9 Anemia, unspecified; M79.602 Pain in left arm; R06.6 Hiccough; Z20.822 Contact with and (suspected) exposure to COVID-19; F15.10 Other stimulant abuse, uncomplicated; F11.20 Opioid dependence, uncomplicated; F19.10 Other psychoactive substance abuse, uncomplicated; F41.9 Anxiety disorder, unspecified; F17.200 Nicotine dependence, unspecified, uncomplicated; G89.29 Other chronic pain; Z89.512 Acquired absence of left leg below knee; Z91.51 Personal history of suicidal behavior; Z88.8 Allergy status to other drugs, medicaments and biological substances; Z79.899 Other long term (current) drug therapy
CPT/HCPCS: 80053; 81003; 85025; 99285; G0480; Q9967

== ENCOUNTER 2021-07-27 08:51 | Inpatient (IN) | payer MEDICAID ==
[~2021-07-27] VITALS: Ht 177.8 cm; Wt 81.2 kg
[~2021-07-27 08:51] MED LIST changes: +BUPR-93 PO; -BUPR150SR PO; -BUPR1FIL3 SL; -FLUO-191 PO; -OLAN5TAB52 PO
[2021-07-27 09:33] LABS: BASOPHILS % (AUTO) 0.8 % (0.0-2.0); EOSINOPHILS % (AUTO) 0.7 % (1.0-6.0); HEMATOCRIT 42.7 % (41-53); HEMOGLOBIN 14.9 g/dL (13.5-17.5); LYMPHOCYTES # (AUTO) 3.2 K/uL (1.0-4.8); LYMPHOCYTES % (AUTO) 22.5 % (22.0-44.0); MEAN CORPUSCULAR HEMOGLOBIN 30.7 pg (26.0-34.0); MEAN CORPUSCULAR HGB CONC 34.8 G/dL (31.0-37.0); MEAN CORPUSCULAR VOLUME 88 fL (80-100); MONOCYTES # (AUTO) 1.1 K/uL (0.1-1.0); MONOCYTES % (AUTO) 7.8 % (2.0-9.0); NEUTROPHILS # (AUTO) 9.7 K/uL (1.8-7.7); NEUTROPHILS % (AUTO) 68.2 % (40.0-70.0); PLATELET COUNT (AUTO) 326 K/uL (150-450); RED BLOOD CELL COUNT(AUTO) 4.85 MIL/uL (4.50-5.90); RED CELL DISTRIBUTION WIDTH 13.6 % (11.5-14.5)
[2021-07-27 09:42] LABS: ANION GAP 9 mmol/L (8-16); CALCIUM, TOTAL 9.8 mg/dL (8.8-10.5); CARBON DIOXIDE 29 mmol/L (22-29); CHLORIDE 103 mmol/L (98-107); CREATININE 0.96 mg/dL (0.60-1.30); GLOMERULAR FILTR. RATE CALC > 60 mL/min (>60); GLUCOSE,RANDOM 113 mg/dL (70-110); POTASSIUM 3.7 mmol/L (3.5-5.1); SODIUM SERUM 141 mmol/L (136-145); UREA NITROGEN, BLOOD 15 mg/dL (7-18)
[2021-07-27 09:47] LABS: ALANINE AMINOTRANSFERASE 27 U/L (12-78); ALBUMIN 4.4 g/dL (3.4-5.0); ALKALINE PHOSPHATASE 107 U/L (46-116); ASPARTATE AMINOTRANSFERASE 18 U/L (15-37); BILIRUBIN,TOTAL 0.3 mg/dL (0.1-1.0); TOTAL PROTEIN, SERUM 8.1 g/dL (6.4-8.2)
[2021-07-27] MEDS ORDERED: PALIPERIDONE 1.5 MG ER TABLET PO PRN (13:30)
[2021-07-27] MEDS ORDERED: BUPRENORPHINE HCL/NALOXONE HCL 8-2 MG SUBLINGUAL TABLET SL ONE (13:30)
[2021-07-27] MEDS ORDERED: TUBERCULIN, PURIFIED PROTEIN DERIVATIVE 5 TU/0.1 ML SYRINGE ID ONE (13:30)
[2021-07-27] MEDS ORDERED: PALIPERIDONE PALMITATE 234 MG/1.5 ML SYRINGE IM ONE (13:30)
[2021-07-27] MEDS ORDERED: GuaiFENesin/D-METHORPHAN [SUGAR-FREE] 200-20MG/10 ML SYRUP UDCUP PO PRN (13:30)
[2021-07-27] MEDS ORDERED: PROMETHAZINE HCL 25 MG TABLET PO PRN (13:30)
[2021-07-27] MEDS: LORazepam 2 MG TABLET PO PRN (13:37)
[2021-07-27] MEDS ORDERED: LORazepam 1 MG TABLET PO ONE (13:45)
[2021-07-27] MEDS ORDERED: HALOPERIDOL 5 MG TABLET PO ONE (13:45)
[2021-07-27] MEDS ORDERED: DiphenhydrAMINE HCL 25 MG CAPSULE PO ONE (13:45)
[2021-07-27 14:51] LABS: COVID AG,FIA SOURCE NASOPHARYNGEAL
[2021-07-27 19:51] LABS: AMPHET/METH SCREEN,URINE POSITIVE (NEGATIVE); BARBITURATE SCREEN, URINE NEGATIVE (NEGATIVE); BENZODIAZEPINES SCREEN,URINE POSITIVE (NEGATIVE); CANNABINOID SCREEN,URINE NEGATIVE (NEGATIVE); COCAINE SCREEN,URINE NEGATIVE (NEGATIVE); METHADONE SCREEN, URINE NEGATIVE (NEGATIVE); OPIATE SCREEN,URINE NEGATIVE (NEGATIVE)
[2021-07-27 19:57] LABS: PHENCYCLIDINE SCREEN,URINE NEGATIVE (NEGATIVE)
[2021-07-27] MEDS: HydrOXYzine PAMOATE 50 MG CAPSULE PO PRN (20:13)
[2021-07-27 20:33] VITALS: BP 132/91
[2021-07-27] MEDS: PALIPERIDONE 3 MG ER TABLET PO SCH (21:33)
[2021-07-27] MEDS: MELATONIN 5 MG TABLET PO SCH (21:33)
[2021-07-27] MEDS: THIAMINE 100 MG TABLET PO SCH (21:33)
[2021-07-28 06:08] LABS: HEMOGLOBIN A1C 5.5 % (3.8-5.6)
[2021-07-28 06:18] LABS: CHOL/HDL RATIO 3.4 (4.2-7.3); FREE T4 (FREE THYROXINE) 1.02 ng/dL (0.76-1.46); THYROID STIMULATING HORMONE 3.15 uIU/mL (0.36-3.74)
[2021-07-28 08:21] VITALS: BP 104/62
[2021-07-28] MEDS: MULTIVITAMINS WITH MINERALS, THERAPEUTIC TABLET PO SCH (09:17)
[2021-07-28] MEDS: NALTREXONE HCL 50 MG TABLET PO SCH (09:17)
[2021-07-28] MEDS: OMEGA-3/DHA/EPA/FISH OIL 1,000 MG CAPSULE PO SCH (09:17)
[2021-07-28] MEDS: THIAMINE 100 MG TABLET PO SCH ×2 (09:17→16:10)
[2021-07-28] MEDS: FOLIC ACID 1 MG TABLET PO SCH (09:18)
[2021-07-28] MEDS: NICOTINE 21 MG/24 HOUR PATCH TD SCH (09:19)
[2021-07-28] MEDS: BuPROPion HCL XL 150 MG ER TABLET PO SCH (09:21)
[2021-07-28] MEDS: LORazepam 2 MG TABLET PO PRN ×2 (09:36→17:22)
[2021-07-28 16:00] VITALS: BP 139/86
[2021-07-28] MEDS: PALIPERIDONE 3 MG ER TABLET PO SCH (20:16)
[2021-07-28] MEDS: MELATONIN 5 MG TABLET PO SCH (20:16)
[2021-07-29] MEDS: ZOLPIDEM TARTRATE 10 MG TABLET PO PRN (02:55)
[2021-07-29] MEDS: LORazepam 2 MG TABLET PO PRN ×2 (05:30→12:29)
[2021-07-29 05:32] VITALS: BP 141/90
[2021-07-29 08:00] VITALS: BP 142/92
[2021-07-29] MEDS: NICOTINE POLACRILEX 2 MG LOZENGE PO PRN (08:30)
[2021-07-29] MEDS: HydrOXYzine PAMOATE 50 MG CAPSULE PO PRN (08:30)
[2021-07-29] MEDS: NALTREXONE HCL 50 MG TABLET PO SCH (08:31)
[2021-07-29] MEDS: OMEGA-3/DHA/EPA/FISH OIL 1,000 MG CAPSULE PO SCH (08:31)
[2021-07-29] MEDS: FOLIC ACID 1 MG TABLET PO SCH (08:31)
[2021-07-29] MEDS: THIAMINE 100 MG TABLET PO SCH ×2 (08:31→16:06)
[2021-07-29] MEDS: BuPROPion HCL XL 150 MG ER TABLET PO SCH (08:31)
[2021-07-29] MEDS: MULTIVITAMINS WITH MINERALS, THERAPEUTIC TABLET PO SCH (08:31)
[2021-07-29] MEDS: NICOTINE 21 MG/24 HOUR PATCH TD SCH (08:39)
[2021-07-29 16:00] VITALS: BP 125/82
[2021-07-29] MEDS ORDERED: GABAPENTIN 300 MG CAPSULE PO PRN (16:15)
[2021-07-29] MEDS: MELATONIN 5 MG TABLET PO SCH (20:10)
[2021-07-30 00:50] VITALS: BP 143/78
[2021-07-30] MEDS: ZOLPIDEM TARTRATE 10 MG TABLET PO PRN (00:56)
[2021-07-30 04:30] VITALS: BP 152/99
[2021-07-30] MEDS: HydrOXYzine PAMOATE 50 MG CAPSULE PO PRN ×2 (04:31→16:02)
[2021-07-30] MEDS: NICOTINE 21 MG/24 HOUR PATCH TD SCH (08:03)
[2021-07-30] MEDS: MULTIVITAMINS WITH MINERALS, THERAPEUTIC TABLET PO SCH (08:03)
[2021-07-30] MEDS: FOLIC ACID 1 MG TABLET PO SCH (08:03)
[2021-07-30] MEDS: OMEGA-3/DHA/EPA/FISH OIL 1,000 MG CAPSULE PO SCH (08:03)
[2021-07-30] MEDS: NALTREXONE HCL 50 MG TABLET PO SCH (08:03)
[2021-07-30] MEDS: THIAMINE 100 MG TABLET PO SCH ×2 (08:03→16:02)
[2021-07-30 08:34] VITALS: BP 150/95
[2021-07-30] MEDS ORDERED: BUPRENORPHINE HCL/NALOXONE HCL 2-0.5 MG SUBLINGUAL TABLET SL SCH (09:00)
[2021-07-30] MEDS ORDERED: BUPRENORPHINE HCL/NALOXONE HCL 8-2 MG SUBLINGUAL TABLET SL SCH (09:00)
[2021-07-30] MEDS ORDERED: BuPROPion HCL XL 150 MG ER TABLET PO SCH (09:00)
[2021-07-30] MEDS ORDERED: OLANZapine 5 MG TABLET PO PRN (16:15)
[2021-07-30] MEDS: MAG HYDROX/AL HYDROX/SIMETH 30 ML SUSP UDCUP PO PRN (16:16)
[2021-07-30 16:26] VITALS: BP 140/81
[2021-07-30] MEDS: GABAPENTIN 400 MG CAPSULE PO SCH ×2 (17:01→20:08)
[2021-07-30] MEDS: OLANZapine 10 MG TABLET PO SCH (20:08)
[2021-07-30] MEDS: MELATONIN 5 MG TABLET PO SCH (20:08)
[2021-07-31] MEDS: ZOLPIDEM TARTRATE 10 MG TABLET PO PRN (01:00)
[2021-07-31] MEDS: LORazepam 0.5 MG TABLET PO PRN ×3 (01:01→14:17)
[2021-07-31 01:03] VITALS: BP 127/91
[2021-07-31] MEDS: MAG HYDROX/AL HYDROX/SIMETH 30 ML SUSP UDCUP PO PRN ×2 (05:58→12:58)
[2021-07-31 06:18] LABS: BASOPHILS % (AUTO) 0.8 % (0.0-2.0); EOSINOPHILS % (AUTO) 3.1 % (1.0-6.0); HEMATOCRIT 41.5 % (41-53); HEMOGLOBIN 13.9 g/dL (13.5-17.5); LYMPHOCYTES # (AUTO) 2.4 K/uL (1.0-4.8); LYMPHOCYTES % (AUTO) 27.3 % (22.0-44.0); MEAN CORPUSCULAR HEMOGLOBIN 29.9 pg (26.0-34.0); MEAN CORPUSCULAR HGB CONC 33.6 G/dL (31.0-37.0); MEAN CORPUSCULAR VOLUME 89 fL (80-100); MONOCYTES # (AUTO) 0.6 K/uL (0.1-1.0); MONOCYTES % (AUTO) 7.3 % (2.0-9.0); NEUTROPHILS # (AUTO) 5.4 K/uL (1.8-7.7); NEUTROPHILS % (AUTO) 61.5 % (40.0-70.0); PLATELET COUNT (AUTO) 264 K/uL (150-450); RED BLOOD CELL COUNT(AUTO) 4.66 MIL/uL (4.50-5.90); RED CELL DISTRIBUTION WIDTH 13.5 % (11.5-14.5)
[2021-07-31] MEDS: NICOTINE 21 MG/24 HOUR PATCH TD SCH ×2 (07:41→08:53)
[2021-07-31] MEDS: MULTIVITAMINS WITH MINERALS, THERAPEUTIC TABLET PO SCH (07:42)
[2021-07-31] MEDS: BuPROPion HCL XL 150 MG ER TABLET PO SCH (07:42)
[2021-07-31] MEDS: THIAMINE 100 MG TABLET PO SCH ×2 (07:42→16:57)
[2021-07-31] MEDS: NALTREXONE HCL 50 MG TABLET PO SCH (07:42)
[2021-07-31] MEDS: GABAPENTIN 400 MG CAPSULE PO SCH ×4 (07:42→21:02)
[2021-07-31] MEDS: OMEGA-3/DHA/EPA/FISH OIL 1,000 MG CAPSULE PO SCH (07:42)
[2021-07-31] MEDS: FOLIC ACID 1 MG TABLET PO SCH (07:42)
[2021-07-31 08:04] VITALS: BP 135/80
[2021-07-31] MEDS: NICOTINE POLACRILEX 2 MG LOZENGE PO PRN ×2 (08:07→14:16)
[2021-07-31] MEDS: NYSTATIN 15 GM POWDER BOTTLE TP SCH ×2 (09:00→17:00)
[2021-07-31] MEDS ORDERED: PALIPERIDONE PALMITATE 156 MG/ML SYRINGE IM ONE (09:00)
[2021-07-31 16:33] VITALS: BP 149/79
[2021-07-31] MEDS: OLANZapine 10 MG TABLET PO SCH (21:02)
[2021-07-31] MEDS: MELATONIN 5 MG TABLET PO SCH (21:02)
[2021-08-01] MEDS: MAG HYDROX/AL HYDROX/SIMETH 30 ML SUSP UDCUP PO PRN (05:59)
[2021-08-01 06:00] VITALS: BP 149/84
[2021-08-01] MEDS: LORazepam 0.5 MG TABLET PO PRN ×2 (06:00→14:31)
[2021-08-01] MEDS: THIAMINE 100 MG TABLET PO SCH ×2 (08:34→16:19)
[2021-08-01] MEDS: GABAPENTIN 400 MG CAPSULE PO SCH ×4 (08:34→20:26)
[2021-08-01] MEDS: FOLIC ACID 1 MG TABLET PO SCH (08:34)
[2021-08-01] MEDS: NALTREXONE HCL 50 MG TABLET PO SCH (08:34)
[2021-08-01] MEDS: OMEGA-3/DHA/EPA/FISH OIL 1,000 MG CAPSULE PO SCH (08:34)
[2021-08-01] MEDS: MULTIVITAMINS WITH MINERALS, THERAPEUTIC TABLET PO SCH (08:34)
[2021-08-01] MEDS: BuPROPion HCL XL 150 MG ER TABLET PO SCH (08:36)
[2021-08-01 08:49] VITALS: BP 134/90
[2021-08-01] MEDS: NYSTATIN 15 GM POWDER BOTTLE TP SCH ×2 (09:00→17:00)
[2021-08-01] MEDS: NICOTINE 21 MG/24 HOUR PATCH TD SCH (12:40)
[2021-08-01] MEDS: MELATONIN 5 MG TABLET PO SCH (20:26)
[2021-08-01] MEDS: OLANZapine 10 MG TABLET PO SCH (20:26)
[2021-08-02 05:00] VITALS: BP 135/70
[2021-08-02] MEDS: LORazepam 0.5 MG TABLET PO PRN (05:10)
[2021-08-02 08:05] VITALS: BP 131/92
[2021-08-02] MEDS: OMEGA-3/DHA/EPA/FISH OIL 1,000 MG CAPSULE PO SCH (08:35)
[2021-08-02] MEDS: BuPROPion HCL XL 150 MG ER TABLET PO SCH (08:36)
[2021-08-02] MEDS: THIAMINE 100 MG TABLET PO SCH ×2 (08:36→16:27)
[2021-08-02] MEDS: MULTIVITAMINS WITH MINERALS, THERAPEUTIC TABLET PO SCH (08:36)
[2021-08-02] MEDS: NALTREXONE HCL 50 MG TABLET PO SCH (08:36)
[2021-08-02] MEDS: FOLIC ACID 1 MG TABLET PO SCH (08:37)
[2021-08-02] MEDS: GABAPENTIN 400 MG CAPSULE PO SCH ×4 (08:37→20:34)
[2021-08-02] MEDS: NICOTINE 21 MG/24 HOUR PATCH TD SCH (08:38)
[2021-08-02] MEDS: NYSTATIN 15 GM POWDER BOTTLE TP SCH ×2 (08:38→16:28)
[2021-08-02] MEDS: NICOTINE POLACRILEX 2 MG LOZENGE PO PRN (08:55)
[2021-08-02 13:09] LABS: COVID AG,FIA SOURCE NASOPHARYNGEAL
[2021-08-02 16:00] VITALS: BP 129/84
[2021-08-02] MEDS: OLANZapine 10 MG TABLET PO SCH (20:34)
[2021-08-02] MEDS: MELATONIN 5 MG TABLET PO SCH (20:34)
[2021-08-03 05:35] VITALS: BP 110/77
[2021-08-03] MEDS: LORazepam 0.5 MG TABLET PO PRN (05:44)
[2021-08-03 08:01] VITALS: BP 130/85
[2021-08-03] MEDS: OMEGA-3/DHA/EPA/FISH OIL 1,000 MG CAPSULE PO SCH (08:19)
[2021-08-03] MEDS: FOLIC ACID 1 MG TABLET PO SCH (08:19)
[2021-08-03] MEDS: BuPROPion HCL XL 150 MG ER TABLET PO SCH (08:19)
[2021-08-03] MEDS: THIAMINE 100 MG TABLET PO SCH (08:20)
[2021-08-03] MEDS: MULTIVITAMINS WITH MINERALS, THERAPEUTIC TABLET PO SCH (08:20)
[2021-08-03] MEDS: NALTREXONE HCL 50 MG TABLET PO SCH (08:20)
[2021-08-03] MEDS: GABAPENTIN 400 MG CAPSULE PO SCH ×2 (08:20→12:28)
[2021-08-03] MEDS: NICOTINE POLACRILEX 2 MG LOZENGE PO PRN (08:21)
[2021-08-03] MEDS: NICOTINE 21 MG/24 HOUR PATCH TD SCH (08:24)
[2021-08-03] MEDS: NYSTATIN 15 GM POWDER BOTTLE TP SCH (09:00)
[2021-08-03] MEDS ORDERED: MELA5TAB40 PO (12:17)
[2021-08-03] MEDS ORDERED: OMEG-135 PO (12:17)
[2021-08-03] MEDS ORDERED: GABA-1201 PO (12:17)
[2021-08-03] MEDS ORDERED: OLAN10 PO (12:17)
[2021-08-03] MEDS ORDERED: NALT50TA PO (12:17)
[2021-08-03] MEDS ORDERED: BUPR-49 PO (12:17)
== END 2021-08-03 14:05 | disposition home or self-care (01) | DRG 750 ==
LOC: EMS 08:51 → 3EI 20:00
PROVIDERS: ADMIT Psychiatry & Neurology Psychiatry; ATTEND Psychiatry & Neurology Psychiatry
DX: F25.1 Schizoaffective disorder, depressive type (principal); R45.851 Suicidal ideations; F13.20 Sedative, hypnotic or anxiolytic dependence, uncomplicated; Z59.00 Homelessness unspecified; F17.200 Nicotine dependence, unspecified, uncomplicated; F41.9 Anxiety disorder, unspecified; F15.20 Other stimulant dependence, uncomplicated; Z20.822 Contact with and (suspected) exposure to COVID-19; J44.9 Chronic obstructive pulmonary disease, unspecified; T43.596A Underdosing of other antipsychotics and neuroleptics, initial encounter; Y92.89 Other specified places as the place of occurrence of the external cause; Z89.512 Acquired absence of left leg below knee; Z88.8 Allergy status to other drugs, medicaments and biological substances; Z63.9 Problem related to primary support group, unspecified; Z65.3 Problems related to other legal circumstances; Z55.9 Problems related to education and literacy, unspecified; Z91.51 Personal history of suicidal behavior
CPT/HCPCS: 80053; 80061; 83036; 84439; 84443; 85025; 86592; 99285; G0480; Q9967